=== PATIENT | male | born 1955 | race Caucasian/White ===

== ENCOUNTER 2021-09-16 15:57 | Observation (INO) ==
[2021-09-16] MEDS ORDERED: *HR* OxyCODONE Immed Rel 5 MG TABLET PO PRN (20:13)
[2021-09-16] MEDS ORDERED: Melatonin 3 MG TABLET PO PRN (20:13)
[2021-09-16] MEDS ORDERED: Ondansetron 4 MG/2 ML VIAL IVP PRN (20:13)
[2021-09-16] MEDS ORDERED: Acetaminophen 325 MG TABLET PO PRN (20:13)
[2021-09-16] MEDS ORDERED: *HR* HYDROcodone/Acet 5/325 mg TABLET PO PRN (20:13)
[2021-09-16] MEDS ORDERED: Naloxone 0.4 MG/ML INJ IVP PRN (20:13)
[2021-09-16] MEDS ORDERED: *HR* Promethazine 25 MG/ML VIAL IM PRN (20:13)
[2021-09-16] MEDS ORDERED: D5% in Water 1,000 ML IVC PRN (20:19)
[2021-09-16] MEDS ORDERED: Dextrose Gel 15 GM/37.5 ML TUBE PO PRN ×2 (20:19)
[2021-09-16] MEDS ORDERED: *HR* Dextrose 50 % in Water (Syg) 50 ML SYRINGE IVP PRN (20:19)
[2021-09-16] MEDS: Insulin DETEMIR 100 UNIT/ML X5UNITS SUBQ SCH (22:24)
[2021-09-16] MEDS: *HR* Heparin 5,000 UNIT/ML VIAL SQ SCH (22:24)
[2021-09-17] MEDS: *HR* Heparin 5,000 UNIT/ML VIAL SQ SCH ×3 (05:36→21:30)
[2021-09-17 06:24] LABS: Basophils # 0.1 K/mcL (0.0-0.2); Basophils % 0.9 %; Eosinophils # 0.1 K/mcL (0.0-0.6); Eosinophils % 1.5 %; Hematocrit 36.9 % (37.5-50.1); Hemoglobin 12.3 g/dL (12.9-16.9); Immature Granulocytes % 0.2 % (0-4); Lymphocytes # 1.9 K/mcL (0.6-4.6); Lymphocytes % 35.2 %; Mean Corpuscular HGB Conc 33.3 g/dL (31.6-35.5); Mean Corpuscular Hemoglobin 27.1 pg (28.0-33.3); Mean Corpuscular Volume 81.3 fL (83.0-100.0); Mean Platelet Volume 10.2 fL (9.4-12.4); Monocytes # 0.5 K/mcL (0.0-1.3); Monocytes % 9.9 %; Neutrophils # 2.9 K/mcL (1.6-8.9); Platelet Count 214 K/mcL (140-400); Red Blood Count 4.54 M/mcL (4.19-5.50); Red Cell Distribution Width 15.4 % (11.5-14.5); Segmented Neutrophils % 52.3 %; White Blood Count 5.5 K/mcL (4.3-11.1)
[2021-09-17] MEDS: Insulin LISPRO 300 UNITS/3 ML VIAL SUBQ SCH ×4 (06:28→17:35)
[2021-09-17 07:16] LABS: Prothrombin Time 11.6 Seconds (9.4-12.1)
[2021-09-17 08:23] LABS: BUN/Creatinine Ratio 16 (6-26); Blood Urea Nitrogen 17 mg/dL (8-23); Calcium 8.7 mg/dL (8.6-10.3); Carbon Dioxide 30 mEq/L (23-29); Chloride 106 mEq/L (98-107); Glucose 214 mg/dL (70-105); Magnesium 1.7 mg/dL (1.6-2.6); Osmolality,Calculated 298 (280-300); Potassium 4.1 mEq/L (3.5-5.1); Sodium 140 mEq/L (136-145); eGFR For African Americans > 60 (> 60); eGFR For Non-African Americans > 60 (> 60)
[2021-09-17] MEDS: carvediloL 6.25 MG TABLET PO SCH ×2 (10:17→17:35)
[2021-09-17] MEDS: Aspirin Enteric Coated 81 MG Tablet PO SCH (10:17)
[2021-09-17] MEDS ORDERED: Heparin 1,000 UNITS/500 mL 500 ML ONE (13:08)
[2021-09-17] MEDS ORDERED: 0.9 % Sodium Chloride 2,000 ML ONE (13:08)
[2021-09-17] MEDS ORDERED: *HR* Heparin 10,000 UNIT/10 ML VIAL ONE ×2 (13:09→13:56)
[2021-09-17] MEDS ORDERED: Nitroglycerin 1,000 MCG/5 ML VIAL IV ONE (13:09)
[2021-09-17] MEDS ORDERED: Iopamidol - 370 200 ML INFUS..BTL ONE ×2 (13:09→13:56)
[2021-09-17] MEDS ORDERED: *HR* FentaNYL (PF) 100 MCG/2 ML VIAL ONE (13:18)
[2021-09-17] MEDS ORDERED: *HR* Midazolam HCl 2 MG/2 ML VIAL ONE (13:18)
[2021-09-17] MEDS ORDERED: Perflutren Lipid Microsphere 1.3 ML in 0.9 % Sodium Chloride 8.7 ML IVP PRN (13:23)
[2021-09-17] MEDS ORDERED: Tirofiban 12.5 MG/250ML 12.5 MG/250 ML BAG ONE (13:55)
[2021-09-17] MEDS ORDERED: Dextrose Gel 15 GM/37.5 ML TUBE PO PRN ×2 (20:09)
[2021-09-17] MEDS ORDERED: D5% in Water 1,000 ML IVC PRN (20:09)
[2021-09-17] MEDS ORDERED: *HR* Dextrose 50 % in Water (Syg) 50 ML SYRINGE IVP PRN (20:09)
[2021-09-17] MEDS ORDERED: Insulin LISPRO 300 UNITS/3 ML VIAL SUBQ SCH (21:00)
[2021-09-17] MEDS: Pregabalin 75 MG CAPSULE PO SCH (21:30)
[2021-09-17] MEDS: Insulin DETEMIR 100 UNIT/ML X5UNITS SUBQ SCH (21:30)
[2021-09-17] MEDS: hydrOXYzine pamoate 25 MG CAPSULE PO SCH (21:30)
[2021-09-18 02:56] LABS: BUN/Creatinine Ratio 18 (6-26); Blood Urea Nitrogen 20 mg/dL (8-23); Calcium 8.7 mg/dL (8.6-10.3); Carbon Dioxide 27 mEq/L (23-29); Chloride 105 mEq/L (98-107); Glucose 147 mg/dL (70-105); Osmolality,Calculated 291 (280-300); Sodium 138 mEq/L (136-145); eGFR For African Americans > 60 (> 60); eGFR For Non-African Americans > 60 (> 60)
[2021-09-18 03:00] VITALS: O2SAT 94
[2021-09-18] MEDS: *HR* Heparin 5,000 UNIT/ML VIAL SQ SCH (06:13)
[2021-09-18 07:16] VITALS: BP 159/77; PULSE 64; TEMP 98.1
[2021-09-18] MEDS: hydrOXYzine pamoate 25 MG CAPSULE PO SCH (07:57)
[2021-09-18] MEDS: Pregabalin 75 MG CAPSULE PO SCH (07:57)
[2021-09-18] MEDS: carvediloL 6.25 MG TABLET PO SCH (07:57)
[2021-09-18] MEDS: Aspirin Enteric Coated 81 MG Tablet PO SCH (07:57)
[2021-09-18] MEDS: Insulin LISPRO 300 UNITS/3 ML VIAL SUBQ SCH ×2 (07:58→12:30)
[2021-09-18] MEDS ORDERED: lisinopriL 20 MG TABLET PO SCH (09:00)
[2021-09-18] MEDS ORDERED: Cyanocobalamin (B-12) 1,000 MCG TABLET PO SCH (09:00)
[2021-09-18] MEDS ORDERED: Magnesium Oxide 400 MG TABLET PO SCH (09:00)
[2021-09-18] MEDS ORDERED: Omega-3/Dha/Epa/Fish Oil [Fish Oil 1,000 Mg Softgel] PO SCH (09:00)
== END 2021-09-18 13:15 | disposition home or self-care (01) ==
LOC: 2ANU → SUATTDRO 19:34
PROVIDERS: ADMIT Internal Medicine; ATTEND Internal Medicine